=== PATIENT | male | born 1945 | race American Indian/Alaskan Native ===

== ENCOUNTER 2016-11-10 12:41 | Outpatient (CLI) | payer MEDICARE ==
--- NOTE | 2016-11-11 10:00 | XRay Report ---
METASTATIC BONE SURVEY HISTORY: Monoclonal gammopathy, multiple myeloma. COMPARISON: 06/03/10. FINDINGS: Multiple radiographs of the axial and proximal appendicular skeleton were obtained. Osteopenia is suspected. There are moderate degenerative changes throughout the spine. No blastic or lytic lesions are detected. There are multiple metallic foreign bodies in the lower extremities consistent with BBs. IMPRESSION: Osteopenia. No suspicious bony lesions are identified on x-ray.
== END 2016-11-10 12:42 | disposition home or self-care (01) ==
LOC: XRAY 12:41
PROVIDERS: ATTEND Internal Medicine Hematology & Oncology
DX: D47.2 Monoclonal gammopathy (principal); C90.00 Multiple myeloma not having achieved remission; M85.80 Other specified disorders of bone density and structure, unspecified site; M47.899 Other spondylosis, site unspecified; S80.859A Superficial foreign body, unspecified lower leg, initial encounter; X58.XXXA Exposure to other specified factors, initial encounter; Y93.89 Activity, other specified; Y92.89 Other specified places as the place of occurrence of the external cause; Y99.8 Other external cause status; I10 Essential (primary) hypertension; Z72.0 Tobacco use
CPT/HCPCS: 77074

== ENCOUNTER 2017-10-08 21:13 | Emergency (ER) | payer MEDICARE ==
[2017-10-08 21:49] VITALS: BP 150/76
--- NOTE | 2017-10-08 23:02 | XRay Report ---
FINAL REPORT EXAM: XR HIP 2-3V RT HISTORY: RT HIP PAIN TECHNIQUE: Two views of the pelvis and 2 coned views of the right hip PRIORS: None. FINDINGS: The pelvic bones are normally mineralized and aligned without focal lesions or fracture. SI joints appear normal. The bilateral hips appear normal. There is no evidence of acute fracture. There is diffuse bilateral iliac and femoral artery atherosclerotic calcification. IMPRESSION: Normal right hip Atherosclerosis
--- NOTE | 2017-10-08 23:20 | Emergency Department Report ---
ED Extremity Problem HPI - General Chief complaint: Extremity Injury, Lower Stated complaint: RIGHT HIP PAIN Time Seen by Provider: 10/08/17 22:06 Source: patient Mode of arrival: Ambulatory Limitations: No Limitations - History of Present Illness Initial comments: 72M PMH HTN, DMt2, history of CVA p/w right upper hip pain. Denies fever, chills , nausea, vomiting, no direct trauma to hip. Pt is AAox3, c/o right upper hip pain. States he was working earlier this evening. State as he was walking he felt sharp pain right upper hip. Lasted for a few minutes and went away. Denies falling. Denies any rash. Denies any swelling of right lower extremity. Denies any paresthesias right lower extremity. Patient is currently ambulatory without assistance. Patient denies any associated diaphoresis chest pain palpitations shortness of breath abdominal pain blurry vision headache dizziness. States that pain lasted momentarily then went away. States he currently feels it. Feels like he strained his muscle. Patient did state that while he was working earlier this evening he was on his knees working on floor tiles. MD Complaint: extremity pain -: This evening Location: right, lower extremity (right upper hip/iliac crest region) -: Yes arthralgia Severity scale (0 -10): 8 Quality: aching Consistency: intermittent Improves with: immobilization Associated Symptoms: denies other symptoms - Related Data Home Medications Medication Instructions Recorded Confirmed Last Taken Aspirin [Baby Aspirin] 81 mg PO QDAY 03/05/13 04/02/16 10/08/17 Clopidogrel [Plavix] 75 mg PO QDAY 03/05/13 04/02/16 10/08/17 Lovastatin [Altoprev] 20 mg PO QHS 03/05/13 04/02/16 10/08/17 Olmesartan/Amlodipin/Hcthiazid 1 tab PO QDAY 03/05/13 04/02/16 10/08/17 [Tribenzor 20-5-12.5 mg] glipiZIDE [Glipizide ER] 5 mg PO BID 03/05/13 10/08/17 10/08/17 metFORMIN [Glucophage] 1,000 mg PO BID 03/05/13 10/08/17 10/08/17 Insulin Regular, Human Inj 100 units SQ BS PRN 08/25/15 04/02/16 Unknown [NovoLIN R Inj] Previous Rx's Medication Instructions Recorded Last Taken Type Acetaminophen [Acetaminophen TAB] 500 mg PO Q6HR PRN #20 tablet 10/08/17 Unknown Rx Allergies Allergy/AdvReac Type Severity Reaction Status Date / Time venom-honey bee Allergy Anaphylaxis Verified 08/25/15 11:08 [bee venom (honey bee)] ED Review of Systems ROS: Stated complaint: RIGHT HIP PAIN Other details as noted in HPI Constitutional: denies: chills, fever Eyes: denies: eye pain, eye discharge, vision change ENT: denies: ear pain, throat pain Respiratory: denies: cough, shortness of breath, wheezing Cardiovascular: denies: chest pain, palpitations Endocrine: no symptoms reported Gastrointestinal: denies: abdominal pain, nausea, diarrhea Genitourinary: denies: urgency, dysuria Musculoskeletal: denies: back pain, joint swelling, arthralgia Skin: denies: rash, lesions Neurological: denies: headache, weakness, paresthesias Psychiatric: denies: anxiety, depression Hematological/Lymphatic: denies: easy bleeding, easy bruising ED Past Medical Hx - Past Medical History Hx Hypertension: Yes (MANY YEARS) Hx CVA: Yes Hx Diabetes: Yes (1991) - Surgical History Hx Appendectomy: Yes Additional Surgical History: polyp from colon removed/colon resection - Social History Smoking Status: Never Smoker Substance Use Type: None - Medications Home Medications: Home Medications Medication Instructions Recorded Confirmed Last Taken Type Aspirin [Baby Aspirin] 81 mg PO QDAY 03/05/13 04/02/16 10/08/17 History Clopidogrel [Plavix] 75 mg PO QDAY 03/05/13 04/02/16 10/08/17 History Lovastatin [Altoprev] 20 mg PO QHS 03/05/13 04/02/16 10/08/17 History Olmesartan/Amlodipin/Hcthiazid 1 tab PO QDAY 03/05/13 04/02/16 10/08/17 History [Tribenzor 20-5-12.5 mg] glipiZIDE [Glipizide ER] 5 mg PO BID 03/05/13 10/08/17 10/08/17 History metFORMIN [Glucophage] 1,000 mg PO BID 03/05/13 10/08/17 10/08/17 History Insulin Regular, Human Inj 100 units SQ BS PRN 08/25/15 04/02/16 Unknown History [NovoLIN R Inj] Acetaminophen [Acetaminophen TAB] 500 mg PO Q6HR PRN #20 tablet 10/08/17 Unknown Rx ED Physical Exam - General Limitations: No Limitations General appearance: alert, in no apparent distress - Head Head exam: Present: atraumatic, normocephalic - Eye Eye exam: Present: normal appearance, PERRL, EOMI - ENT ENT exam: Present: mucous membranes moist - Neck Neck exam: Present: normal inspection - Respiratory Respiratory exam: Present: normal lung sounds bilaterally. Absent: respiratory distress - Cardiovascular Cardiovascular Exam: Present: regular rate, normal rhythm. Absent: systolic murmur, diastolic murmur, rubs, gallop - GI/Abdominal GI/Abdominal exam: Present: soft, normal bowel sounds - Rectal Rectal exam: Present: deferred - Extremities Exam Extremities exam: Present: normal inspection - Expanded Lower Extremity Exam Right Hip exam: Present: full ROM (hip flexion and extension internal and still rotation clinically intact), tenderness (slight pain near upper right iliac crest. No erythema or fluctuance or cellulitis in this area) Upper Leg exam: Present: normal inspection, full ROM Knee exam: Present: normal inspection, full ROM Lower Leg exam: Present: normal inspection, full ROM Ankle exam: Present: normal inspection, full ROM Foot/Toe exam: Present: normal inspection, full ROM Neuro vascular tendon exam: Present: no vascular compromise (distal dorsalis pedis and posterior tibial pulses strong to palpation) - Back Exam Back exam: Present: normal inspection - Neurological Exam Neurological exam: Present: alert, oriented X3 - Psychiatric Psychiatric exam: Present: normal affect, normal mood - Skin Skin exam: Present: warm, dry, intact, normal color. Absent: rash ED Course Vital Signs 10/08/17 10/08/17 21:44 23:50 Temperature 97.8 F Pulse Rate 85 Respiratory 20 18 Rate Blood Pressure 150/76 O2 Sat by Pulse 99 Oximetry ED Medical Decision Making - Lab Data Result diagrams: 10/08/17 23:53 10/08/17 23:53 - Medical Decision Making A/P: Musculoskeletal pain right hip 1-neurovascular exam of right lower extremity and hip clinically intact , unremarkable. X-ray shows atherosclerotic disease no fractures of right hip. Patient is ambulatory and has full range of motion of right hip. 2-labs including CK unremarkable 3-patient is able to ambulate slowly without assistance. Patient states he has a walker at home which she can use to help him ambulate 4-vital signs stable for discharge Critical care attestation.: If time is entered above; I have spent that time in minutes in the direct care of this critically ill patient, excluding procedure time. ED Disposition Clinical Impression: Right hip pain Disposition: - TO HOME OR SELFCARE Is pt being admited?: No Does the pt Need Aspirin: No Condition: Stable Instructions: Musculoskeletal Pain (ED), Arthralgia (ED) Prescriptions: Acetaminophen [Acetaminophen TAB] 500 mg PO Q6HR PRN #20 tablet PRN Reason: Pain Referrals: [facility] [Provider Group] - 3-5 Days [facility] [Outside] - 3-5 Days MANUEL ALARCON JR, MD [Staff Physician] - 3-5 Days Time of Disposition: 23:42
[2017-10-08] MEDS ORDERED: MORPHINE IM ONE (23:31)
[2017-10-08] MEDS ORDERED: TYLENOL PO ONE (23:31)
[2017-10-09 00:02] LABS: Basophils % (Auto) 0.5 % (0.0-1.8); Eosinophils # (Auto) 0.1 K/mm3 (0.0-0.4); Eosinophils % (Auto) 1.5 % (0.0-4.3); Hemoglobin 12.8 gm/dl (11.8-15.2); Lymphocytes # (Auto) 1.8 K/mm3 (1.2-5.4); Lymphocytes % (Auto) 20.2 % (13.4-35.0); Mean Corpuscular HGB Conc 34 % (32-34); Mean Corpuscular Hemoglobin 30 pg (28-32); Mean Corpuscular Volume 89 fl (84-94); Monocytes # (Auto) 0.5 K/mm3 (0.0-0.8); Monocytes % (Auto) 5.8 % (0.0-7.3); Platelet Count 245 K/mm3 (140-440); Red Cell Distribution Width 14.2 % (13.2-15.2)
[2017-10-09 00:14] LABS: BUN/Creatinine Ratio 14; Blood Urea Nitrogen 19 mg/dL (9-20); Calcium 9.7 mg/dL (8.4-10.2); Hemolysis Index 0
== END 2017-10-09 00:58 | disposition home or self-care (01) ==
LOC: ED 21:13
DX: M25.551 Pain in right hip (principal); I10 Essential (primary) hypertension; E11.9 Type 2 diabetes mellitus without complications; Z86.73 Personal history of transient ischemic attack (TIA), and cerebral infarction without residual deficits; Z79.4 Long term (current) use of insulin; Z79.82 Long term (current) use of aspirin; Z91.030 Bee allergy status
CPT/HCPCS: 36415; 73502; 80048; 82550; 85025; 96372; 99284; J2270

== ENCOUNTER 2019-04-07 17:11 | Emergency (ER) | payer MEDICARE ==
--- NOTE | 2019-04-07 17:47 | Event Note ---
ED Screening Note Date of service: 04/07/19 Time: 17:41 ED Screening Note: This is a 74 y.o. M. that presents to the ER with right sided abdominal pain. Patient states he went to Urgent Care yesterday and instructed to change diet. Patient reports symptoms are worse and feel like he is constipated. Have not eaten today because he is afraid symptoms will be worse. PMH of DM - n/v/d or fever This initial assessment/diagnostic orders/clinical plan/treatment(s) is/are subject to change based on patients health status, clinical progression and re- assessment by fellow clinical providers in the ED. Further treatment and workup at subsequent clinical providers discretion. Patient/guardian urged not to elope from the ED as their condition may be serious if not clinically assessed and managed. Initial orders include: Labs and CT of abdomen and pelvis
[2019-04-07 18:36] LABS: Basophils % (Auto) 0.3 % (0.0-1.8); Eosinophils # (Auto) 0.1 K/mm3 (0.0-0.4); Eosinophils % (Auto) 0.8 % (0.0-4.3); Hematocrit 35.5 % (35.5-45.6); Hemoglobin 12.3 gm/dl (11.8-15.2); Lymphocytes # (Auto) 2.7 K/mm3 (1.2-5.4); Mean Corpuscular HGB Conc 35 % (32-34); Mean Corpuscular Volume 89 fl (84-94); Monocytes # (Auto) 1.5 K/mm3 (0.0-0.8); Monocytes % (Auto) 12.5 % (0.0-7.3); Platelet Count 251 K/mm3 (140-440); Red Blood Count 3.99 M/mm3 (3.65-5.03); Red Cell Distribution Width 13.8 % (13.2-15.2)
[2019-04-07 18:54] LABS: Albumin 4.2 g/dL (3.9-5); Calcium 9.6 mg/dL (8.4-10.2)
--- NOTE | 2019-04-07 20:17 | Cat Scan Report ---
CT of the abdomen and pelvis with contrast INDICATION: Right-sided abdominal pain and constipation COMPARISON: None FINDINGS: There is 5 mm right middle lobe nodule which is nonspecific with minimal basilar atelectasi s. The liver, spleen, pancreas, left adrenal gland and kidneys show no significant abnormalities. Sma ll nodules in the right adrenal gland are likely nonfunctioning adenomas and incidental. No definite gallbladder or biliary tree abnormality. No fluid or adenopathy in the upper abdomen. There has been right hemicolectomy and ileotransverse colostomy perhaps for inflammatory bowel disease. At and just proximal to the anastomosis there is thickening of the ileum with surrounding inflammation. No perfor ation or abscess in this area. There is no secondary bowel obstruction. CT of the pelvis shows the remaining small bowel to appear normal. Prostate is moderately enlarged. N o pelvic fluid or adenopathy. There is a 3 cm right sided bladder diverticulum. There is relatively e xtensive vascular calcification without aneurysm. Small umbilical hernia contains fat. No significant skeletal lesion. IMPRESSION: Ileal wall thickening and surrounding inflammation at the anastomotic site suggests infla mmatory bowel disease. No perforation or secondary obstruction seen. Automated exposure control was utilized to diminish radiation dose. Signer Name: Peterson Fernandes MD Signed: 04/07/2019 8:13 PM Workstation Name: [email or web address]
--- NOTE | 2019-04-07 20:27 | Emergency Department Report ---
ED Abdominal Pain HPI - General Chief Complaint: Abdominal Pain Stated Complaint: BOWEL BLOCKAGE Time Seen by Provider: 04/07/19 17:40 Source: patient Mode of arrival: Ambulatory Limitations: No Limitations - History of Present Illness Initial Comments: 74-year-old male with history of hypertension, diabetes presents to ED with right-sided abdominal pain since yesterday. Patient reported history of partial colon resection secondary to polyps several years ago. Patient states that time, his appendix was also removed. Patient currently reports right lower quadrant pain, dull in nature with episodes of sharp pain intermittently. Patient states he has not had a bowel movement today, however did have a bowel movement on yesterday. He denies any fever, nausea, vomiting or urinary symptoms. Patient states he was seen at the [place] [facility] office on yesterday by Dr. Hedrick, states a colonoscopy scheduled for the future. However, he was told to come to the ER if his pain did not improve. Patient states he took some Tylenol earlier which seemed to help his pain somewhat. MD Complaint: abdominal pain -: days(s) (1) Location: RLQ Radiation: none Migration to: no migration Severity: moderate Quality: sharp, dull Consistency: constant Improves With: nothing Worsens With: nothing Associated Symptoms: constipation. denies: nausea, vomiting, diarrhea, fever, dysuria Treatments Prior to Arrival: other (tylenol) - Related Data Home Medications Medication Instructions Recorded Confirmed Last Taken Aspirin [Baby Aspirin] 81 mg PO QDAY 03/05/13 04/02/16 10/08/17 Clopidogrel [Plavix] 75 mg PO QDAY 03/05/13 04/02/16 10/08/17 Lovastatin [Altoprev] 20 mg PO QHS 03/05/13 04/02/16 10/08/17 Olmesartan/Amlodipin/Hcthiazid 1 tab PO QDAY 03/05/13 04/02/16 10/08/17 [Tribenzor 20-5-12.5 mg] glipiZIDE [Glipizide ER] 5 mg PO BID 03/05/13 10/08/17 10/08/17 metFORMIN [Glucophage] 1,000 mg PO BID 03/05/13 10/08/17 10/08/17 Insulin Regular, Human Inj 100 units SQ BS PRN 08/25/15 04/02/16 Unknown [NovoLIN R Inj] Previous Rx's Medication Instructions Recorded Last Taken Type Acetaminophen [Acetaminophen TAB] 500 mg PO Q6HR PRN #20 tablet 10/08/17 Unknown Rx Ciprofloxacin HCl [Ciprofloxacin 500 mg PO Q12HR 10 Days #20 tab 04/07/19 Unknown Rx TAB] Dicyclomine [Bentyl] 20 mg PO QID PRN #20 tablet 04/07/19 Unknown Rx Docusate Sodium [Colace] 100 mg PO BID PRN #20 capsule 04/07/19 Unknown Rx metroNIDAZOLE [Flagyl] 500 mg PO Q12HR 10 Days #20 tab 04/07/19 Unknown Rx Allergies Allergy/AdvReac Type Severity Reaction Status Date / Time venom-honey bee Allergy Anaphylaxis Verified 04/07/19 17:42 [bee venom (honey bee)] ED Review of Systems ROS: Stated complaint: BOWEL BLOCKAGE Other details as noted in HPI Comment: All other systems reviewed and negative Constitutional: denies: chills, fever Gastrointestinal: abdominal pain, constipation. denies: nausea, vomiting, di arrhea Genitourinary: denies: dysuria, frequency Musculoskeletal: denies: back pain ED Past Medical Hx - Past Medical History Previous Medical History?: Yes Hx Hypertension: Yes (MANY YEARS) Hx CVA: Yes Hx Diabetes: Yes (1991) - Surgical History Past Surgical History?: Yes Hx Appendectomy: Yes Additional Surgical History: polyp from colon removed/colon resection - Social History Smoking Status: Never Smoker Substance Use Type: None - Medications Home Medications: Home Medications Medication Instructions Recorded Confirmed Last Taken Type Aspirin [Baby Aspirin] 81 mg PO QDAY 03/05/13 04/02/16 10/08/17 History Clopidogrel [Plavix] 75 mg PO QDAY 03/05/13 04/02/16 10/08/17 History Lovastatin [Altoprev] 20 mg PO QHS 03/05/13 04/02/16 10/08/17 History Olmesartan/Amlodipin/Hcthiazid 1 tab PO QDAY 03/05/13 04/02/16 10/08/17 History [Tribenzor 20-5-12.5 mg] glipiZIDE [Glipizide ER] 5 mg PO BID 03/05/13 10/08/17 10/08/17 History metFORMIN [Glucophage] 1,000 mg PO BID 03/05/13 10/08/17 10/08/17 History Insulin Regular, Human Inj 100 units SQ BS PRN 08/25/15 04/02/16 Unknown History [NovoLIN R Inj] Acetaminophen [Acetaminophen TAB] 500 mg PO Q6HR PRN #20 tablet 10/08/17 Unknown Rx Ciprofloxacin HCl [Ciprofloxacin 500 mg PO Q12HR 10 Days #20 tab 04/07/19 Unknown Rx TAB] Dicyclomine [Bentyl] 20 mg PO QID PRN #20 tablet 04/07/19 Unknown Rx Docusate Sodium [Colace] 100 mg PO BID PRN #20 capsule 04/07/19 Unknown Rx metroNIDAZOLE [Flagyl] 500 mg PO Q12HR 10 Days #20 tab 04/07/19 Unknown Rx ED Physical Exam - General Limitations: No Limitations General appearance: alert, in no apparent distress - Head Head exam: Present: atraumatic, normocephalic - Eye Eye exam: Present: normal appearance - ENT ENT exam: Present: mucous membranes moist - Neck Neck exam: Present: normal inspection - Respiratory Respiratory exam: Present: normal lung sounds bilaterally. Absent: respiratory distress - Cardiovascular Cardiovascular Exam: Present: regular rate, normal rhythm - GI/Abdominal GI/Abdominal exam: Present: soft, tenderness (RLQ moderately tender). Absent: distended - Extremities Exam Extremities exam: Present: normal inspection - Neurological Exam Neurological exam: Present: alert, oriented X3 - Psychiatric Psychiatric exam: Present: normal affect, normal mood - Skin Skin exam: Present: warm, dry, intact, normal color ED Course Vital Signs 04/07/19 04/07/19 04/07/19 17:40 20:37 21:00 Temperature 98.2 F 97.9 F Pulse Rate 81 83 Respiratory 20 18 Rate Blood Pressure 147/80 131/76 Blood Pressure 131/69 [Left] O2 Sat by Pulse 98 98 98 Oximetry 04/07/19 21:30 Temperature Pulse Rate Respiratory Rate Blood Pressure 131/76 Blood Pressure [Left] O2 Sat by Pulse 96 Oximetry ED Medical Decision Making - Lab Data Result diagrams: 04/07/19 18:19 04/07/19 18:19 - Radiology Data Radiology results: report reviewed, image reviewed - Medical Decision Making 74-year-old male with ileitis seen on CT. Labs show slight elevation and WBCs 11.7 and slight increase in creatinine at 1.7. Lipase is elevated, however patient having no epigastric pain. Cipro and Flagyl given. Patient has GI appointment scheduled. Patient declined any pain medication here in the ED, he is comfortable. Vital signs are normal. We'll discharge at this time. Return precautions given. - Differential Diagnosis bowel obstruction, constipation, appendicitis Critical care attestation.: If time is entered above; I have spent that time in minutes in the direct care of this critically ill patient, excluding procedure time. ED Disposition Clinical Impression: Ileitis Disposition: - TO HOME OR SELFCARE Is pt being admited?: No Condition: Stable Instructions: Abdominal Pain (ED) Prescriptions: Dicyclomine [Bentyl] 20 mg PO QID PRN #20 tablet PRN Reason: abdominal pain Ciprofloxacin HCl [Ciprofloxacin TAB] 500 mg PO Q12HR 10 Days #20 tab Docusate Sodium [Colace] 100 mg PO BID PRN #20 capsule PRN Reason: Constipation metroNIDAZOLE [Flagyl] 500 mg PO Q12HR 10 Days #20 tab Referrals: PRIMARY MD SRIDHAR [Primary Care Provider] - 3-5 Days ZHANNA HEDRICK MD [Staff Physician] - 3-5 Days Time of Disposition: 20:45
[2019-04-07 20:44] LABS: Bilirubin,Urine NEG (Negative); Blood,Urine NEG (Negative); Color,Urine Yellow (Yellow); Mucus,Urine FEW /HPF; Protein,Urine <15 mg/dL mg/dL (Negative); Urobilinogen,Urine < 2.0 mg/dL (<2.0); WBC,Urine < 1.0 /HPF (0.0-6.0)
[2019-04-07] MEDS ORDERED: metroNIDAZOLE 500 MG TAB PO ONE (20:55)
[2019-04-07] MEDS ORDERED: levoFLOXacin 500 MG TAB PO ONE (20:55)
[2019-04-07 21:41] VITALS: BP 131/76
== END 2019-04-07 21:44 | disposition home or self-care (01) ==
LOC: ED 17:11
DX: K52.9 Noninfective gastroenteritis and colitis, unspecified (principal); I10 Essential (primary) hypertension; E11.9 Type 2 diabetes mellitus without complications; Z91.030 Bee allergy status; Z79.82 Long term (current) use of aspirin; Z79.899 Other long term (current) drug therapy; Z79.4 Long term (current) use of insulin; Z90.49 Acquired absence of other specified parts of digestive tract
CPT/HCPCS: 36415; 74177; 80053; 81001; 83690; 85025; 99284; Q9967